=== PATIENT | male | born 1955 | race African-American/Black ===

== ENCOUNTER 2018-05-31 13:32 | Outpatient (CLI) | payer MEDICARE ==
[2018-05-31 14:05] LABS: INR-International Normal Ratio 3.4; Prothrombin Time 34.3 SEC (12.0-14.7)
== END 2018-05-31 13:33 | disposition home or self-care (01) ==
LOC: NAV LABSP 13:32
DX: Z51.81 Encounter for therapeutic drug level monitoring (principal); Z79.01 Long term (current) use of anticoagulants
CPT/HCPCS: 85610